=== PATIENT | male | born 1970 | race Caucasian/White ===

== ENCOUNTER 2017-09-23 01:20 | Emergency (ER) | payer MEDICAID ==
[~2017-09-23] VITALS: Ht 170.2 cm; Wt 100.0 kg
[2017-09-23] MEDS ORDERED: methylPREDNISolone sod succ 125mg/2ml vial IM ONE (01:35)
[2017-09-23] MEDS ORDERED: albuterol 2.5 MG/3 ML nebule NEB ONE ×2 (01:35→02:25)
[2017-09-23] MEDS ORDERED: ipratropium/albuterol 3ml nebule NEB ONE (01:35)
[2017-09-23] MEDS ORDERED: ALBU8.5H8 IH (02:23)
[2017-09-23] MEDS ORDERED: PRED20TA PO (02:23)
[2017-09-23 03:15] VITALS: BP 3/86
== END 2017-09-23 03:17 | disposition home or self-care (01) ==
LOC: ER 01:21
DX: J45.901 Unspecified asthma with (acute) exacerbation (principal); Z79.899 Other long term (current) drug therapy
CPT/HCPCS: 93005; 94640; 94760; 96372; 99284; J2930